=== PATIENT | female | born 1965 | race Caucasian/White ===

== ENCOUNTER 2023-11-13 11:03 | Emergency (ER) | payer OTHER ==
[~2023-11-13] VITALS: Ht 152.4 cm; Wt 120.0 kg
[2023-11-13 11:30] VITALS: PULSE 95; RESP 16; TEMP 97.5; O2SAT 93
[2023-11-13] MEDS ORDERED: ALBUTEROL SULF 2.5 MG/0.5ML(0.5%) NEB SOLN HHN ONE (11:45)
[2023-11-13] MEDS ORDERED: IPRATROPIUM BROM 0.5 MG/2.5ML INH SOL HHN ONE (11:45)
[2023-11-13] MEDS ORDERED: methylPREDNISolone SOD SUCC 125 MG/2 ML VL IV ONE (11:45)
[2023-11-13 12:05] LABS: Basophils # (auto) 0.1 10 ^3/uL (0-0.2); Basophils % (auto) 0.7 % (0.0-2.0); Eosinophils # (auto) 0.2 10 ^3/uL (0-0.8); Eosinophils % (auto) 2.1 % (0.0-7.0); Hemoglobin 13.6 g/dL (12.2-16.2); Lymphocytes # (auto) 2.1 10 ^3/uL (0.4-5.4); Lymphocytes % (auto) 25.5 % (10.0-50.0); Mean Corpuscular Hemoglobin 28.7 pg (28.0-32.0); Mean Corpuscular Hgb Conc. 33.1 g/dL (32.0-36.0); Mean Corpuscular Volume 86.7 fL (80.0-100.0); Monocytes # (auto) 0.7 10 ^3/uL (0-1.3); Monocytes % (auto) 8.5 % (0.0-12.0); Neutrophils # (auto) 5.2 10 ^3/uL (1.6-8.6); Neutrophils % (auto) 63.2 % (37.0-80.0); Red Blood Cells 4.73 10^6/uL (4.0-5.20); Red Cell Distribution Width 15.5 % (11.8-14.3); White Blood Cell 8.3 10^3/uL (4.4-10.8)
[2023-11-13 12:21] LABS: Alanine Aminotransferase 41 U/L (7-40); Albumin 4.6 g/dL (3.2-4.8); Alkaline Phosphatase 260 U/L (46-116); Anion Gap 7 (5-15); Aspartate Aminotransferase 32 U/L (13-40); BUN/Creatinine Ratio 14.5 (10.0-20.0); Bilirubin, Total 0.7 mg/dL (0.2-1.0); Blood Urea Nitrogen 16 mg/dL (9-23); Calcium 10.6 mg/dL (8.5-10.1); Carbon Dioxide 30 mmol/L (20-30); Chloride 103 mmol/L (98-107); Glucose 126 mg/dL (74-106); Potassium 4.7 mmol/L (3.5-5.1); Sodium 140 mmol/L (136-145); Total Protein 7.8 g/dL (5.7-8.2)
[2023-11-13 12:43] LABS: Platelet Estimate Increased
[2023-11-13 13:13] LABS: Rapid Influenza A Negative (Negative); Rapid Influenza B Negative (Negative)
[2023-11-13 13:14] LABS: COVID19 ANTIGEN SOFIA FIA NEGATIVE (NEGATIVE)
[2023-11-13 14:00] VITALS: BP 132/94; PULSE 95; RESP 14; O2SAT 94
[2023-11-13] MEDS ORDERED: METH4PAK PO (14:01)
[2023-11-13] MEDS ORDERED: AZIT1POW PO ×2 (14:01→19:24)
[2023-11-13] MEDS ORDERED: AZIT500T PO (19:25)
== END 2023-11-13 14:37 | disposition home or self-care (01) ==
LOC: ER 11:03
DX: J20.9 Acute bronchitis, unspecified (principal); K21.9 Gastro-esophageal reflux disease without esophagitis; R07.89 Other chest pain; Z20.822 Contact with and (suspected) exposure to COVID-19
CPT/HCPCS: 36415; 71045; 80053; 83880; 85025; 87426; 87804; 93005; 94644; 96374; 99285; J2930; J7644